=== PATIENT | male | born 1965 | race Caucasian/White ===

== ENCOUNTER 2018-11-15 14:26 | Inpatient (IN) | payer BC ==
[2018-11-15] MEDS ORDERED: NS(*) 0.9% 1000 ML BAG 1,000 ML IV ONE (14:31)
[2018-11-15] MEDS ORDERED: DIPHTH/TETANUS/ACEL. PERTUSSIS IM ONE (14:35)
[2018-11-15] MEDS ORDERED: fentaNYL CITR 100 MCG/2 ML AMP IVP ONE ×3 (14:35→17:50)
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
[2018-11-15] MEDS ORDERED: METF-452 PO (14:38)
[2018-11-15 14:48] LABS: PLATELET COUNT, AUTOMATED 251 K/uL (150-450)
[2018-11-15 14:57] LABS: INR 0.97
[2018-11-15] MEDS ORDERED: IOPAMIDOL 76% 100 ML INFUS BTL 100 ML ONE (15:44)
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
[2018-11-15] MEDS ORDERED: NS(*) 0.9% 1000 ML BAG 1,000 ML IV PRN (17:44)
[2018-11-15] MEDS ORDERED: NALOXONE HCL 0.4 MG/ML VIAL IVP PRN ×2 (17:45)
[2018-11-15] MEDS ORDERED: FLUSH 10 ML SYR IVP PRN (17:45)
[2018-11-15] MEDS ORDERED: ONDANSETRON 4 MG/2 ML VIAL IVP PRN (17:45)
[2018-11-15] MEDS ORDERED: HYDROMORPHON PCA10MG/50ML(CII) 10 MG/50 ML PLAST..BAG IV PRN (17:45)
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
--- NOTE | 2018-11-15 18:36 | RADIOLOGY IMAGING REPORT ---
FACILITY: [facility] PATIENT NAME: Tin Bonner : 1965 MR: [id number] V: [id number] EXAM DATE: ORDERING PHYSICIAN: JOEL OSBORN TECHNOLOGIST: Location: [facility] [place] Patient: Tin Bonner : 1965 Visit/Account:[id number] Date of Sevice: 11/15/2018 Examination: CHEST SINGLE AP Comparison: Chest CT same day. History: post chest tube for ptx Findings: A left-sided small bore chest tube is now present with the tip extending towards the left l haley apex. Possible tiny residual pneumothorax. Left lower lung volume loss versus contusion. The righ t lung is clear. Left rib fractures and chest wall soft tissue gas. IMPRESSION: 1. Left chest tube placement. Possible tiny residual pneumothorax. 2. Left lower lung volume loss versus contusion. 3. Left lateral rib fractures. Report Dictated By: Sin Severino MD at 11/15/2018 6:27 PM Report E-Signed By: Sin Severino MD at 11/15/2018 6:31 PM WSN:[id number]
--- NOTE | 2018-11-15 18:43 | RADIOLOGY IMAGING REPORT ---
FACILITY: [facility] [place] PATIENT NAME: Tin Bonner : 1965 MR: [id number] V: [id number] EXAM DATE: ORDERING PHYSICIAN: JOEL OSBORN TECHNOLOGIST: Location: Patient: Tin Bonner : 1965 Visit/Account:[id number] Date of Sevice: 11/15/2018 Study: ORBITS Indication: MRI screening Comparison study: None Findings: A single view of the orbits demonstrates no evidence of metallic foreign body. No significant bony abnormality is identified. IMPRESSION: No evidence of metallic foreign body overlying the orbits. Report Dictated By: Alexandre Barton at 11/15/2018 6:38 PM Report E-Signed By: Alexandre Barton at 11/15/2018 6:38 PM WSN:[id number]
[2018-11-15] MEDS ORDERED: PCA LOCKBOX KEYS XX ONE (19:31)
[2018-11-15] MEDS ORDERED: HYDROMORPHONE HCL 1 MG/ML SYRINGE IVP ONE (19:50)
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
[2018-11-15 21:11] VITALS: BP 133/87
[2018-11-15] MEDS: ACETAMINOPHEN 325 MG TAB PO PRN (21:19)
[2018-11-15] MEDS: FAMOTIDINE 20 MG TAB PO SCH (21:19)
[2018-11-15] MEDS: DOCUSATE SODIUM 100 MG CAP PO SCH (21:20)
[2018-11-15] MEDS: BACITRACIN/POLYMY B OINT 15 GM TP SCH (21:55)
[2018-11-15] MEDS ORDERED: NEOMYCIN/POLYMYX/BACITR OINT 1 PACKET TP ONE ×2 (22:18→22:31)
[2018-11-15] MEDS: IBUPROFEN 200 MG TAB PO PRN (22:29)
[2018-11-15 23:15] VITALS: BP 128/88
[2018-11-16 03:35] VITALS: BP 109/74
[2018-11-16 06:11] LABS: PLATELET COUNT, AUTOMATED 157 K/uL (150-450)
[2018-11-16 07:23] VITALS: BP 125/76
[2018-11-16] MEDS: DOCUSATE SODIUM 100 MG CAP PO SCH ×2 (09:26→20:58)
[2018-11-16] MEDS: FAMOTIDINE 20 MG TAB PO SCH ×2 (09:26→20:58)
[2018-11-16] MEDS: ENOXAPARIN 40 MG/0.4ML SYR SC SCH (09:27)
[2018-11-16] MEDS: BACITRACIN/POLYMY B OINT 15 GM TP SCH ×2 (09:27→20:59)
[2018-11-16] MEDS ORDERED: POLYETHYLENE GLYCOL 17 GM PKT PO ONE (10:30)
[2018-11-16] MEDS ORDERED: MAGNESIUM HYDROXIDE* 30ML UDCP PO PRN (10:30)
--- NOTE | 2018-11-16 10:30 | General Surgery Progress Note ---
Subjective Progress Notes Subjective Feeling better this morning. Passing flatus. No abdominal bloating or N/V. No new pain. All pain in left chest and left lower lateral abdominal wall. Physical Exam Vital Signs Date Time Temp Pulse Resp B/P (MAP) Pulse Ox O2 Delivery O2 Flow Rate FiO2 11/16/18 10:00 16 96 11/16/18 09:45 Nasal Cannula 1.0 11/16/18 07:23 98.0 79 125/76 (92) l Intake and Output 11/16/18 07:01 Intake Total 1050 ml Output Total 350 ml Balance 700 ml Intake Oral 50 ml IV Total 1000 ml Output Urine Total 350 ml # Voids 1 General Appearance: Alert, Awake, No Acute Distress, Afebrile Neuro: No Gross deficits Eyes: PERRLA Cardiovascular: Regular Rate and Rhythm Respiratory: Clear to Auscultation GI: Soft and Non-Tender Extremities: Warm, Perfused Result Diagram: 11/16/18 0558 11/16/18 0558 Assessment and Plan Problems: (1) Ribs, multiple fractures Status: Acute Assessment & Plan: 11/15/18: Admit, pain control, will allow him to have a clear diet tonight and regular diet tomorrow if he does well. Pain control will be with a STONEWORKING SANDER, by mouth Tylenol and ibuprofen. Aggressive pulmonary hygiene with incentive from it or, early ambulation/mobilization. We'll start Lovenox for DVT prophylaxis and Pepcid for GI prophylaxis. Chest tube is been placed in his left anterior chest and will follow x-rays and will pull to when his pneumothorax has resolved, and there is no air leak, and he tolerates air seal without recurrence of his pneumothorax. I have explained the CT findings and the plan with him in detail and he seems to understand seems agreeable with this plan. 11/16/18: CXR looks good. Chest tube to water seal. Regular diet. Pain control; will convert to exclusively PO pain control. Will repeat CXR this afternoon after spending day on water seal. If CXR looks good and no air leak will remove chest tube this afternoon. Ambulation, IS, aggressive pulmonary hygiene, H2 kiera, lovenox. Will increase bowel regimen today. (2) Pneumothorax Status: Acute Assessment & Plan: 11/16/18: CXR looks good. Chest tube to water seal. Regular diet. Pain control; will convert to exclusively PO pain control. Will repeat CXR this afternoon after spending day on water seal. If CXR looks good a nd no air leak will remove chest tube this afternoon. (3) Abrasions of multiple sites Status: Acute Assessment & Plan: Clean and apply bacitracin (4) Diabetes Status: Chronic Condition Stable. 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
--- NOTE | 2018-11-16 10:48 | RADIOLOGY IMAGING REPORT ---
FACILITY: [facility] PATIENT NAME: Tin Bonner : 1965 MR: [id number] V: [id number] EXAM DATE: ORDERING PHYSICIAN: NAVEEN SPARKS TECHNOLOGIST: Location: [facility] [place]: Tin Bonner : 1965 Visit/Account:[id number] Date of Sevice: 11/16/2018 Portable chest, one view. HISTORY: Left pneumothorax. COMPARISON: 11/15/2018. A small caliber left chest tube is unchanged. The heart size is normal. The mediastinum is not widene d. Pulmonary vessels are normal. Streaky densities are present in the left lung base, essentially unc hanged. Left pleural thickening is unchanged. Left chest subcutaneous emphysema has decreased. A tiny left apical pneumothorax is unchanged. Fractures are present in the left ribs. IMPRESSION: Tiny left apical pneumothorax, unchanged. Left chest subcutaneous emphysema, decreased. Mild left basilar lung consolidation, unchanged. Left pleural thickening, unchanged. Report Dictated By: Alfonso Koch MD at 11/16/2018 10:40 AM Report E-Signed By: Alfonso Koch MD at 11/16/2018 10:43 AM WSN:[id number]
[2018-11-16] MEDS: traMADol 50 MG TAB PO PRN ×2 (10:54→17:22)
[2018-11-16 12:05] VITALS: BP 123/86
[2018-11-16] MEDS: INSULIN HUM LISPRO 100 UN/ML 3 ML VIAL SUBQ PRN ×2 (12:08→21:06)
[2018-11-16] MEDS: IBUPROFEN 200 MG TAB PO PRN ×2 (12:55→17:22)
[2018-11-16] MEDS: ACETAMINOPHEN 325 MG TAB PO PRN ×2 (14:13→21:10)
[2018-11-16 15:53] VITALS: BP 120/76
--- NOTE | 2018-11-16 15:53 | RADIOLOGY IMAGING REPORT ---
FACILITY: [facility] PATIENT NAME: Tin Bonner : 1965 MR: [id number] V: [id number] EXAM DATE: ORDERING PHYSICIAN: NAVEEN SPARKS TECHNOLOGIST: Location: [facility] - [place] Patient: Tin Bonner : 1965 Visit/Account:[id number] Date of Sevice: 11/16/2018 Portable chest, one view. HISTORY: Pneumothorax. COMPARISON: 11/16/2018 at 0552 hours. A small caliber left chest tube is unchanged. The heart size is normal. The mediastinum is not widene d. Pulmonary vessels are normal. Streaky densities are present in the left lung base, essentially unc hanged. Left pleural thickening is unchanged. Left chest subcutaneous emphysema is unchanged. A tiny left apical pneumothorax is unchanged. Fractures are present in the left ribs. IMPRESSION: Tiny left apical pneumothorax, unchanged. Left chest subcutaneous emphysema, unchanged. Mild left basilar lung consolidation, unchanged. Left pleural thickening, unchanged. Report Dictated By: Alfonso Koch MD at 11/16/2018 3:44 PM Report E-Signed By: Alfonso Koch MD at 11/16/2018 3:47 PM WSN:[id number]
[2018-11-16 18:56] VITALS: BP 111/74
[2018-11-16 23:26] VITALS: BP 116/74
[2018-11-17 03:21] VITALS: BP 118/79
[2018-11-17] MEDS: ACETAMINOPHEN 325 MG TAB PO PRN (04:32)
[2018-11-17] MEDS: IBUPROFEN 200 MG TAB PO PRN (04:32)
[2018-11-17 05:44] LABS: PLATELET COUNT, AUTOMATED 153 K/uL (150-450)
--- NOTE | 2018-11-17 06:04 | RADIOLOGY IMAGING REPORT ---
FACILITY: [facility] - [place] PATIENT NAME: Tin Bonner : 1965 MR: [id number] V: [id number] EXAM DATE: ORDERING PHYSICIAN: NAVEEN SPARKS TECHNOLOGIST: [place] [facility] [place] Tin Bonner : 1965 Visit/Account:[id number] Date of Sevice: 11/17/2018 PORTABLE CHEST: Indication: Pneumothorax. Technique: A single frontal film was obtained. Comparison: 11/16/2018 Lines and tubes: The left chest catheter was removed. Skeletal and soft tissue structures: There is minimal air in the left chest wall and neck. Heart and mediastinum: Within normal limits. Lung castillo: There is minimal linear atelectasis at the left base. Otherwise clear. Pleural spaces: A very tiny residual left apical pneumothorax is observed. There is no significant ef fusion. Impression: Very tiny residual left apical pneumothorax. Report Dictated By: Lenin Sanches MD at 11/17/2018 5:52 AM Report E-Signed By: Lenin Sanches MD at 11/17/2018 5:58 AM WSN:[id number]
[2018-11-17 07:02] VITALS: BP 112/75
[2018-11-17] MEDS: INSULIN HUM LISPRO 100 UN/ML 3 ML VIAL SUBQ PRN (08:34)
[2018-11-17] MEDS: ENOXAPARIN 40 MG/0.4ML SYR SC SCH (08:39)
[2018-11-17] MEDS: BACITRACIN/POLYMY B OINT 15 GM TP SCH (08:39)
[2018-11-17] MEDS: DOCUSATE SODIUM 100 MG CAP PO SCH (08:39)
[2018-11-17] MEDS: FAMOTIDINE 20 MG TAB PO SCH (08:39)
[2018-11-17] MEDS ORDERED: DOCU-202 PO (08:40)
[2018-11-17] MEDS ORDERED: TRAM-420 PO (08:40)
--- NOTE | 2018-11-17 08:44 | Short(Outpt) Discharge Summary ---
Discharge Summary Reason for Hosp/Final Diag: (1) Ribs, multiple fractures Status: Acute Hospital Course & Plan: 11/15/18: Admit, pain control, will allow him to have a clear diet tonight and regular diet tomorrow if he does well. Pain control will be with a MOLECULAR MODELER, by mouth Tylenol and ibuprofen. Aggressive pulmonary hygiene with incentive from it or, early ambulation/mobilization. We'll start Lovenox for DVT prophylaxis and Pepcid for GI prophylaxis. Chest tube is been placed in his left anterior chest and will follow x-rays and will pull to when his pneumothorax has resolved, and there is no air leak, and he tolerates air seal without recurrence of his pneumothorax. I have explained the CT findings and the plan with him in detail and he seems to understand seems agreeable with this plan. 11/16/18: CXR looks good. Chest tube to water seal. Regular diet. Pain control; will convert to exclusively PO pain control. Will repeat CXR this afternoon after spending day on water seal. If CXR looks good and no air leak will remove chest tube this afternoon. Ambulation, IS, aggressive pulmonary hygiene, H2 kiera, lovenox. Will increase bowel regimen today. 11/17/18: Doing well. CXR looks good this morning. Left chest tube removed last evening. Pain well controlled. Tolerating diet. Will d/c to home this morning. (2) Pneumothorax Status: Acute Hospital Course & Plan: 11/16/18: CXR looks good. Chest tube to water seal. Regular diet. Pain control; will convert to exclusively PO pain control. Will repeat CXR this afternoon after spending day on water seal. If CXR looks good and no air leak will remove chest tube this afternoon. (3) Abrasions of multiple sites Status: Acute Hospital Course & Plan: Clean and apply bacitracin (4) Diabetes Status: Chronic Departure Discharge to: Home, Self Care Discharge Instructions Home Meds Active Scripts Tramadol Hcl (TRAMADOL HCL) 50 Mg Tablet, 1 TAB PO Q4H PRN for PAIN, #30 TAB 0 Refills Prov:NAVEEN SPARKS MD 11/17/18 Docusate Sodium (DOCUSATE SODIUM) 100 Mg Capsule, 1 CAP PO BID, #30 CAPSULE 0 Refills Prov:NAVEEN SPARKS MD 11/17/18 Reported Medications Metformin Hcl (METFORMIN HCL) 1,000 Mg Tablet, 1 TAB PO BID, TAB 11/15/18 Diet: Regular Activity: As Tolerated Special Instructions: F/U with your primary care provider in 5 days to have the sutures removed from your face. Avoid any elevation changes (flying, scuba diving, extensive travelling) for 2 weeks. If you develop worsening shortness of breath or chest pain, go to the nearest ER for evaluation. Leave the dry skin abrasions open to air but apply antibiotic ointment (your choice: neosporin, triple, bacitracin are all acceptable) to any abrasion that's weeping and cover it with a bandage and change this daily. When it stops weeping, leave it open to air. Problem Qualifiers (1) Ribs, multiple fractures: Encounter type: initial encounter Fracture type: closed Laterality: left Qualified Codes: S22.42XA - Multiple fractures of ribs, left side, initial encounter for closed fracture (2) Pneumothorax: Pneumothorax type: traumatic Encounter type: initial encounter Qualified Codes: S27.0XXA - Traumatic pneumothorax, initial encounter (3) Diabetes: Diabetes mellitus type: type 2 Diabetes mellitus senior living insulin use: without termite helper use Diabetes mellitus complication status: without complication Qualified Codes: E11.9 - Type 2 diabetes mellitus without complications NAVEEN SPARKS MD Nov 17, 2018 08:44
[2018-11-17] MEDS ORDERED: POLYETHYLENE GLYCOL 17 GM PKT PO SCH (09:00)
== END 2018-11-17 11:22 | disposition home or self-care (01) | DRG 184 ==
LOC: ER 14:39 → OBSVTOIN 18:06 → INTOOBSV 18:06 → MED 18:06 → UNDODISIN 11-17 11:22
PROVIDERS: ADMIT Surgery; ATTEND Surgery
PROC: 0HQ1XZZ Repair Face Skin, External Approach (ICD-10-PCS; principal; 2018-11-15)
DX: S22.41XA Multiple fractures of ribs, right side, initial encounter for closed fracture (principal); S27.0XXA Traumatic pneumothorax, initial encounter; S01.81XA Laceration without foreign body of other part of head, initial encounter; E11.9 Type 2 diabetes mellitus without complications; V98.8XXA Other specified transport accidents, initial encounter; Y93.I9 Activity, other involving external motion; Y92.838 Other recreation area as the place of occurrence of the external cause; Y99.8 Other external cause status; Z88.0 Allergy status to penicillin; Z79.84 Long term (current) use of oral hypoglycemic drugs; Z23 Encounter for immunization
CPT/HCPCS: 36415; 36416; 70030; 70200; 70450; 70486; 71045; 71260; 72125; 74177; 80305; 80320; 81001; 82040; 82247; 82310; 82374; 82435; 82565; 82947; 82948; 83690; 84075; 84132; 84155; 84295; 84450; 84460; 84520; 85025; 85610; 85730; 90471; 90715; 96372; 96374; 96376; 99285; A7048; J1170; J1650; J3010; J7030; Q9967